=== PATIENT | female | born 1955 | race Caucasian/White ===

== ENCOUNTER → 2022-02-25 | Day surgery (SDC) | payer MEDICARE ==
--- NOTE | 2022-03-03 08:52 | MM ---
Reason for Exam: Post Procedure Mammogram. Risk Values: Vane 5 year model risk: 1.1%. NCI Lifetime model risk: 3.7%. Tissue Density: Right: The breast tissue is heterogeneously dense. This may lower the sensitivity of mammography. Pathology Description: Location: 3 o'clock. Marker Left Behind. Needle Type: Mammotome Cores: 4 Skin Nicks: 1 Gauge: 13 The procedure of ultrasound guided core biopsy was explained to the patient. Benefits, alternatives, and risks were discussed. An informed consent was then obtained. The patient was placed in supine positioning for imaging and for the procedure. The overlying skin was prepped and draped in usual sterile fashion. Lidocaine buffered with epinephrine was used as anesthetic into the skin and subcutaneous tissue up to area of concern in the right breast. A bree was made with surgical scalpel. Under ultrasound guidance, a 12-gauge vacuum assisted biopsy gun device was used to obtain 4 core samples. Following this, a biopsy clip was placed in lesion. The patient tolerated the procedure well without any immediate complication. The patient was kept in the radiology department for short stay after the procedure and then discharged home in stable condition. Postprocedure mammogram: The patient was transferred to mammography for physician ordered post procedure mammogram for clip placement verification. Biopsy clip is in appropriate position. Impression: Successful, uncomplicated ultrasound guided core biopsy of area of concern in the right breast, full pathology results to follow. Pathology Results: Result: Benign, Scar tissue. RIGHT BREAST, THREE O'CLOCK, NEEDLE CORE BIOPSY: Scar/fibrosis with calcifications. Negative for malignancy. Overall Assessment: Benign Assessment: MG diagnostic mammo RT wo CAD - Right: Benign, BI-RAD 2. Management: Diagnostic Breast Ultrasound of the right breast in 6 months. Electronically signed and approved by: Iker Rowley DO
== END ==
LOC: RADUSWWP 07:46 → MERGE 08:00
PROVIDERS: ATTEND Surgery
DX: N60.31 Fibrosclerosis of right breast (principal); R92.1 Mammographic calcification found on diagnostic imaging of breast
CPT/HCPCS: 88305; 77065; 19083; A4648

== ENCOUNTER → 2022-03-12 | Outpatient (CLI) | payer MEDICARE ==
[2022-03-12 15:04] VITALS: BP 135/85; PULSE 97; RESP 12; TEMP 98.2
--- NOTE | 2022-03-12 15:51 | P.GSHP ---
History of Present Illness H&P Date: 03/12/22 Chief Complaint: Scars/fibrosis right breast tissue Yvette is a 66-year-old white female who is seen in consultation secondary to an ultrasound core biopsy which was done of the right breast on [id number]. Pathology revealed scar/fibrosis with calcifications. The patient underwent a right breast diagnostic mammogram on . After this an ultrasound of the right breast was recommended. Ultrasound was done on 103 122. A 10 mm circumscribed oval lesion 3 o'clock position 4 cm distance from the nipple which was cystic versus solid mass was identified. This was considered suspicious and biopsy was recommended. Biopsy was performed on [id number] and the findings were felt to be benign concordant. This was reviewed with Dr. Delvalle. The patient does not feel any lumps masses or nodules of concern in either breast. She has had bilateral breast reduction in 2019. She tolerated the biopsy without difficulty. Caffiene: rare nicotine: none chocolate: daily hormones: none Family History: cousin: larynx and throat (smoker) 2nd cousin: layrnx cancer cousin: skin cancer patient: skin cancer Hormonal History: menarche: 10 M1, breast fed: yes, age at first : 28 menopause: 52 BCP: 1 year at the time of menopause Surgical History: hernia from trying to lift her sister tonsil and adenoids deviated septum times 3 3 C-sections bilateral rotator cuff repair lasix gallbladder jg fundoplication toe surgery arthritic bone right base of thumb carpel tunnel plastic surgery abdominal plasty bilateral breast reduction Bilateral blepharoplasty herniated disc [id number] sciatica Medical History: SHANNON baby ADHD Social History: HEENT: Negative Alcohol: Occasional Drugs: Negative - Constitutional Constitutional: Denies chills, Denies fever - EENT Comment: has cataracts Eyes: denies blurred vision, denies pain Ears: deny: decreased hearing, tinnitus Ears, nose, mouth and throat: Reports vertigo - Breasts Breasts: bilateral: as per HPI - Cardiovascular Cardiovascular: Denies chest pain, Denies shortness of breath - Respiratory Respiratory: Denies cough, Denies 7 - Gastrointestinal Gastrointestinal: Reports diarrhea, Denies abdominal pain, Denies nausea, Denies vomiting - Genitourinary (Female) Genitourinary: Denies dysuria, Denies hematuria - Menstruation Menstruation: Reports postmenopausal - Musculoskeletal Musculoskeletal: Reports as per HPI - Integumentary Integumentary: Denies pruritus, Denies rash - Neurological Neurological: Reports paresthesias - Psychiatric Comment: ADHD Psychiatric: Reports anxiety - Endocrine Endocrine: Denies fatigue, Denies weight change - Hematologic/Lymphatic Comment: none - Allergic/Immunologic Allergic/Immunologic: Reports seasonal allergies Past Medical History Additional Past Medical History / Comment(s): Skin cancer History of Any Multi-Drug Resistant Organisms: None Reported Past Surgical History: Adenoidectomy, Section, Cholecystectomy, Tonsillectomy Additional Past Surgical History / Comment(s): Deviated septum surgery several times. Back surgery, l-4, l-5. Esophageal Barretts surgery. Lasik surgery bilat eyes. Left and Right Rotator surgery. 2019 bilat breast reduction Past Anesthesia/Blood Transfusion Reactions: No Reported Reaction Past Psychological History: ADD/ADHD, Anxiety Smoking Status: Never smoker Past Alcohol Use History: Rare Past Drug Use History: None Reported - Past Family History Mother Additional Family Medical History / Comment(s): Took SHANNON(for miscarriage), while for this pt not nowing she was carrying twins. this pt is a part of clinical study for this medication. Medications and Allergies Home Medications Medication Instructions Recorded Confirmed Type Cholecalciferol [Vitamin D3 (125 125 mcg PO DAILY 02/17/22 03/12/22 History Mcg = 5000 Iu)] Dextroamphetamine/Amphetamine 20 mg PO DAILY 02/17/22 03/12/22 History [Adderall Xr 20 mg Capsule] Escitalopram [Lexapro] 20 mg PO DAILY 02/17/22 03/12/22 History Allergies Allergy/AdvReac Type Severity Reaction Status Date / Time No Known Allergies Allergy Verified 03/12/22 14:54 Surgical - Exam Vital Signs Temp Pulse Resp BP Pulse Ox 98.2 F 97 12 135/85 96 03/12/22 14:55 03/12/22 14:55 03/12/22 14:55 03/12/22 14:55 03/12/22 14:55 - General no distress - Eyes normal ocular movement - Neck trachea midline - Respiratory normal respiratory effort, clear to auscultation - Cardiovascular Rhythm: regular Heart Sounds: normal: S1, S2 - Abdomen Abdomen: soft, non tender, no guarding, no rigid, no rebound - Integumentary normal turgor - Neurologic no disoriented, no combative - Musculoskeletal normal gait - Psychiatric oriented to time, oriented to person, oriented to place, speech is normal, memory intact Breast Exam: BRA: 38B inspection: bilateral grade 1 ptosis, bilarteral breast reduction palpation: Right breast: Multi-positional exam fibrocystic changes no dominant masses or nodules of concern Right axilla: Fullness in the right axilla with prominent adenopathy which is tender Left breast: Multi-positional exam fibrocystic changes no dominant masses or nodules of concern, status post breast reduction Left axilla: No adenopathy of concern, shotty adenopathy noted Results Mammogram and ultrasound of the breast was reviewed with Dr. Delvalle Assessment and Plan Assessment: Impression: SHANNON baby ADHD Status post core biopsy right breast pathology benign right aillary adenpathy Plan: Ultrasound of right axilla to evaluate adenopathy CC: Belinda Romero
== END ==
LOC: WWCWWP 14:46 → MERGE 15:00
PROVIDERS: ATTEND Surgery
DX: N60.11 Diffuse cystic mastopathy of right breast (principal); F90.9 Attention-deficit hyperactivity disorder, unspecified type; H04.129 Dry eye syndrome of unspecified lacrimal gland

== ENCOUNTER → 2022-04-02 | Outpatient (CLI) | payer MEDICARE ==
[2022-04-02 09:59] VITALS: BP 137/80; PULSE 65; RESP 16; TEMP 97.7
--- NOTE | 2022-04-02 10:19 | P.PN ---
Progress Note - Text Progress Note Date: 04/02/22 Yvette was seen on 03-12-22 and noted to have right axillary fullness. An ultrasound of the right axilla was ordered to evaluate the area. This showed prominent but benign appearing lymph nodes. Recommendation was for a repeat ultrasound in 6 months. The patient had a fall 03-09-22 and fell on an outstretched arm, and developed the swelling after this. She saw an orthopedic surgeon yesterday regarding this. She is going to have physical therapy. At this time there is nothing on examination which would warrant interventional biopsy. Examination: Examination in the right axilla at this time does not reveal any dominant masses or nodules of concern Impression: Right axillary adenopathy appears to be benign Status post core biopsy right breast pathology benign ADHD Plan: bilateral mammogram in 8 months and follow up at that time Therapy as per orthopedic surgery CC: Belinda Romero
== END ==
LOC: WWCWWP 08:42
PROVIDERS: ATTEND Surgery
DX: D36.0 Benign neoplasm of lymph nodes (principal); F90.9 Attention-deficit hyperactivity disorder, unspecified type

== ENCOUNTER → 2022-04-02 | Outpatient (CLI) | payer MEDICARE ==
--- NOTE | 2022-04-02 09:44 | USB ---
Reason for Exam: Clinical finding. Patient History: 02/25/2022, Benign US biopsy breast VAD RT on the right side. Risk Values: Vane 5 year model risk: 1.3%. NCI Lifetime model risk: 4.3%. Prior Study Comparison: 02/25/2022 Right MG diagnostic mammo RT wo CAD, [facility]. Findings: The axilla of the right breast was scanned. Targeted ultrasound right axilla corresponding to the patient directed palpable site. Additional ultrasound images of the contralateral side for comparison purposes. No discrete mass or fluid collection at the right axillary patient directly palpable site. While assessing the remainder of the right axilla bases, a few prominent but benign-appearing lymph nodes are present, the 2 largest measuring 2.0 x 2.0 x 1.1 cm with a thin cortex of 1.5 mm. The second measures 1.6 x 1.2 x 1.1 cm with a 1 mm cortex. Preserved fatty hilum noted. Similar findings on the contralateral side. Overall Assessment: Benign, BI-RAD 2 Management: Screening Mammogram of both breasts in 8 months. Prominent but benign appearing lymph nodes in the axilla likely reactive/post inflammatory. These are incidentally seen and not located at the patient directed palpable site. Further clinical management for any suspicious palpable area at the right axilla. Patient should continue monthly self breast exams and these results should not preclude additional follow-up of suspicious palpable abnormalities. Results were given to the patient verbally at the time of exam. Electronically signed and approved by: Philip Delvalle M.D. Radiologist
== END | disposition home or self-care (01) ==
LOC: RADUSWWP 08:40
PROVIDERS: ATTEND Surgery
DX: R92.8 Other abnormal and inconclusive findings on diagnostic imaging of breast (principal)

== ENCOUNTER → 2022-12-16 | Outpatient (CLI) | payer MEDICARE ==
--- NOTE | 2022-12-17 19:13 | MM ---
Reason for Exam: Screening (asymptomatic). Patient History: Menarche at age 8. First Full-Term at age 28. Late child-bearing (after 30). Postmenopausal. 02/25/2022, Benign US biopsy breast VAD RT on the right side. Risk Values: Vane 5 year model risk: 3.1%. NCI Lifetime model risk: 9.3%. Prior Study Comparison: 02/25/2022 Right MG diagnostic mammo RT wo CAD, [facility]. Tissue Density: There are scattered fibroglandular densities. Findings: Analyzed By CAD. Pattern appears symmetrical and stable. Multiple benign punctate calcifications are present. No significant interval change is evident. No suspicious groups of microcalcifications, spiculated or lobular masses, architectural distortion or other secondary signs of malignancy are mammographically apparent. Overall Assessment: Benign, BI-RAD 2 Management: Screening Mammogram of both breasts in 1 year. A negative mammogram report should not preclude additional follow up of suspicious palpable abnormalities. Patient should continue monthly self breast exam. A clinical breast exam by your physician is recommended on an annual basis and results should be correlated with mammographic findings. Electronically signed and approved by: Shayan Guy D.O. Radiologis
== END | disposition home or self-care (01) ==
LOC: RADMAMWWP 15:22
PROVIDERS: ATTEND Surgery
DX: Z12.31 Encounter for screening mammogram for malignant neoplasm of breast (principal); Z78.0 Asymptomatic menopausal state
CPT/HCPCS: 77063; 77067

== ENCOUNTER → 2024-02-11 | Outpatient (CLI) | payer MEDICARE ==
--- NOTE | 2024-02-16 14:49 | MM ---
Reason for Exam: Screening (asymptomatic). Last mammogram was performed 1 year(s) and 2 month(s) ago. Patient History: Menarche at age 8. First Full-Term at age 28. Late child-bearing (after 30). Postmenopausal. Patient used Hormonal Contraceptives for 1 year. 06/2018, Bilateral Reduction. 02/25/2022, Benign US biopsy breast VAD RT on the right side. Risk Values: Vane 5 year model risk: 3.1%. NCI Lifetime model risk: 8.9%. Prior Study Comparison: 02/25/2022 Right MG diagnostic mammo RT wo CAD, [facility]. 12/16/2022 Bilateral MG 3D screening mammo w/cad, [facility]. Tissue Density: The breasts are heterogeneously dense, which may obscure small masses. Findings: Analyzed By CAD. Benign-appearing calcifications. There is an area of asymmetric density in the upper central right breast. There also is an area of nodular density with calcification in the central posterior right breast seen on MLO view. Recommend compression view, true lateral view and axial ACL views. Recommend spot compression view. Chronic appearing nodularity right breast stable. Overall Assessment: Incomplete: need additional imaging evaluation, BI-RAD 0 Management: Diagnostic Mammogram of the right breast. . Patient should continue monthly self-breast exams. A clinical breast exam by your physician is recommended on an annual basis. This exam should not preclude additional follow-up of suspicious palpable abnormalities. Note on Vane scores and lifetime risk: 1. A Vane score greater than 3% is considered moderate risk. If this is the case, consider specialist referral to assess eligibility for a risk reducing agent. 2. If overall lifetime risk for the development of breast cancer is 20% or higher, the patient may qualify for future screening with alternating mammogram and breast MRI. [facility], , 02/16/2024 2:46 PM. Electronically signed and approved by: Ric Sotomayor M.D. Radiologis
== END | disposition home or self-care (01) ==
LOC: RADMAMWWP 16:11
PROVIDERS: ATTEND Family Medicine
DX: Z12.31 Encounter for screening mammogram for malignant neoplasm of breast (principal); Z78.0 Asymptomatic menopausal state; R92.333 Mammographic heterogeneous density, bilateral breasts; N63.10 Unspecified lump in the right breast, unspecified quadrant
CPT/HCPCS: 77063; 77067

== ENCOUNTER → 2024-02-18 | Outpatient (CLI) | payer MEDICARE ==
--- NOTE | 2024-02-18 15:01 | USB ---
Reason for Exam: Additional evaluation requested from abnormal screening. Patient History: Menarche at age 8. First Full-Term at age 28. Late child-bearing (after 30). Postmenopausal. Patient used Hormonal Contraceptives for 1 year. 06/2018, Bilateral Reduction. 02/25/2022, Benign US biopsy breast VAD RT on the right side. Risk Values: Vane 5 year model risk: 3.1%. NCI Lifetime model risk: 8.9%. Technique: Method: Targeted. Prior Study Comparison: 02/25/2022 Right MG diagnostic mammo RT wo CAD, [facility]. 12/16/2022 Bilateral MG 3D screening mammo w/cad, [facility]. 02/11/2024 Bilateral MG 3D screening mammo w/cad, [facility]. Findings: The axilla of the right breast and the retroareolar of the right breast were scanned. No solid or cystic masses are identified. No abnormality to correlate with the mammographic finding.. Overall Assessment: Suspicious, BI-RAD 4 Management: Stereotactic Core Biopsy of the right breast. A clinical breast exam by your physician is recommended on an annual basis and results should be correlated with mammographic findings. This exam should not preclude additional follow-up of suspicious palpable abnormalities. Results were given to the patient verbally at the time of exam. [facility], , 02/18/2024 2:54 PM. Electronically signed and approved by: Shayan Guy D.O. Radiologis
--- NOTE | 2024-02-18 15:03 | MM ---
Reason for Exam: Additional evaluation requested from abnormal screening. Last screening mammogram was performed less than 1 month ago. Patient History: Menarche at age 8. First Full-Term at age 28. Late child-bearing (after 30). Postmenopausal. Patient used Hormonal Contraceptives for 1 year. 06/2018, Bilateral Reduction. 02/25/2022, Benign US biopsy breast VAD RT on the right side. Risk Values: Vane 5 year model risk: 3.1%. NCI Lifetime model risk: 8.9%. Prior Study Comparison: 02/25/2022 Right MG diagnostic mammo RT wo CAD, [facility]. 04/02/2022 Right US breast axilla RT, [facility]. 12/16/2022 Bilateral MG 3D screening mammo w/cad, [facility]. 12/18/2022 Right US breast axilla RT, [facility]. Tissue Density: Right: The breasts are heterogeneously dense, which may obscure small masses. Findings: Analyzed By CAD. The pattern is symmetrical. Hypoechoic nodular areas within the right breast. Benign scattered calcifications are present bilaterally. There is a partially circumscribed oval density measuring 0.5 cm just medial to midline middle of the right breast 4 cm nipple. Additional evaluation with ultrasound is recommended. Overall Assessment: Incomplete: need additional imaging evaluation, BI-RAD 0 Management: Diagnostic Breast Ultrasound of the right breast. A negative mammogram report should not preclude additional follow up of suspicious palpable abnormalities. Patient should continue monthly self breast exam. A clinical breast exam by your physician is recommended on an annual basis and results should be correlated with mammographic findings. Note on Vane scores and lifetime risk: 1. A Vane score greater than 3% is considered moderate risk. If this is the case, consider specialist referral to assess eligibility for a risk reducing agent. 2. If overall lifetime risk for the development of breast cancer is 20% or higher, the patient may qualify for future screening with alternating mammogram and breast MRI. [facility], , 02/18/2024 2:35 PM. Electronically signed and approved by: Shayan Guy D.O. Radiologis
== END | disposition home or self-care (01) ==
LOC: RADMAMWWP 14:07
PROVIDERS: ATTEND Family Medicine
DX: R92.8 Other abnormal and inconclusive findings on diagnostic imaging of breast (principal); R92.333 Mammographic heterogeneous density, bilateral breasts; Z78.0 Asymptomatic menopausal state
CPT/HCPCS: 77065; 76642; G0279; 77061

== ENCOUNTER → 2024-02-28 | Day surgery (SDC) | payer MEDICARE ==
[2024-02-28] MEDS: ALPRAZolam 0.25 MG TAB PO PRN (07:31)
[2024-02-28 07:38] VITALS: RESP 16
[2024-02-28 08:39] VITALS: BP 138/86; PULSE 69; TEMP 98.1
--- NOTE | 2024-03-02 10:06 | MM ---
Risk Values: Vane 5 year model risk: 3.1%. NCI Lifetime model risk: 8.9%. Prior Study Comparison: 12/16/2022 Bilateral MG 3D screening mammo w/cad, [facility]. 02/11/2024 Bilateral MG 3D screening mammo w/cad, [facility]. 02/18/2024 Right MG 3D work up w/cad RT, [facility]. Pathology Description: Marker Left Behind. Approach: CC FB Needle Type: Eviva Cores: 7 Skin Nicks: 1 Gauge: 9 The density in question within the left breast were targeted by the undersigned. Procedure was performed by the undersigned. Informed consent was obtained and all of the patients questions were answered. The standard sterile technique was utilized and appropriate local anesthesia was obtained with 1% lidocaine. Mammotome probe was advanced and multiple core samples were obtained and sent to pathology for interpretation. Microclip marker was deployed at the site of biopsy. Patient was transferred to mammography suite for post procedure mammogram. Post procedural mammogram demonstrates appropriate deployment of radiopaque clip marker. The patient tolerated the procedure well and left the department in stable condition. Pathology results are pending. Impression: Successful stereotactic core biopsy left breast. Pathology Results: Result: Benign, Fibrocystic change. Pathology and radiology were reviewed. Findings are concordant. RIGHT BREAST, STEREOTACTIC NEEDLE CORE BIOPSY: Benign breast tissue with fibrocystic changes including cysts, apocrine metaplasia, mild usual type ductal hyperplasia and rare microcalcifications. Overall Assessment: Benign Management: Screening Mammogram of the right breast in 6 months. Electronically signed and approved by: Abundio Vanegas M.D. Radiologis
== END ==
LOC: RADMAMWWP 07:16
PROVIDERS: ATTEND Family Medicine
DX: N60.81 Other benign mammary dysplasias of right breast (principal)
CPT/HCPCS: 88305; 19081; A4648; J2003

== ENCOUNTER → 2024-11-07 | Outpatient (CLI) | payer MEDICARE ==
--- NOTE | 2024-11-07 15:07 | MM ---
Reason for Exam: Follow-up at short interval from prior study. Last screening mammogram was performed 8 month(s) ago. Patient History: Menarche at age 8. First Full-Term at age 28. Late child-bearing (after 30). Postmenopausal. Patient used Hormonal Contraceptives for 1 year. 02/28/2024, Benign MG stereo VAD BX RT on the right side. 06/2018, Bilateral Reduction. 02/25/2022, Benign US biopsy breast VAD RT on the right side. Risk Values: Vane 5 year model risk: 3.9%. NCI Lifetime model risk: 11.2%. Prior Study Comparison: 12/16/2022 Bilateral MG 3D screening mammo w/cad, [facility]. 02/11/2024 Bilateral MG 3D screening mammo w/cad, [facility]. 02/18/2024 Right MG 3D work up w/cad RT, [facility]. Tissue Density: Right: There are scattered areas of fibroglandular density. Findings: Analyzed By CAD. Microclip right breast from recent biopsy. Small oil cysts and vascular calcifications are unchanged. Other areas of asymmetric density are also unchanged. Overall Assessment: Benign, BI-RAD 2 Management: Screening Mammogram of both breasts in 4 months. Back on schedule. See note below in regards to the patient's increased 5 year Vane score. Results were given to the patient verbally at the time of exam. Patient should continue monthly self-breast exams. A clinical breast exam by your physician is recommended on an annual basis. This exam should not preclude additional follow-up of suspicious palpable abnormalities. Note on Vane scores and lifetime risk: 1. A Vane score greater than 3% is considered moderate risk. If this is the case, consider specialist referral to assess eligibility for a risk reducing agent. 2. If overall lifetime risk for the development of breast cancer is 20% or higher, the patient may qualify for future screening with alternating mammogram and breast MRI. [facility], , 11/07/2024 3:03 PM. Electronically signed and approved by: Philip Delvalle M.D. Radiologist
== END | disposition home or self-care (01) ==
LOC: RADMAMWWP 13:09
PROVIDERS: ATTEND Family Medicine
DX: R92.8 Other abnormal and inconclusive findings on diagnostic imaging of breast (principal); R92.321 Mammographic fibroglandular density, right breast; Z78.0 Asymptomatic menopausal state; Z92.0 Personal history of contraception
CPT/HCPCS: 77061; 77065